=== PATIENT | female | born 1995 | race Caucasian/White ===

== ENCOUNTER 2024-01-10 08:15 | Outpatient (CLI) | payer OTHER, SELFPAY ==
[2024-01-10 10:39] LABS: Chlamydia DNA Amplified* NOT DETECTED (No Detected); GC DNA Amplified* NOT DETECTED (No Detected)
== END 2024-01-10 08:16 | disposition home or self-care (01) ==
LOC: NFLDREF 08:15
PROVIDERS: PCP Family Medicine; Visit Provider Registered Nurse
DX: Z11.3 Encounter for screening for infections with a predominantly sexual mode of transmission (principal)
CPT/HCPCS: 87491; 87591

== ENCOUNTER 2024-02-22 14:31 | Outpatient (CLI) | payer OTHER, SELFPAY | END 2024-02-22 14:32 | disposition home or self-care (01) | PROVIDERS: PCP Family Medicine; Visit Provider Registered Nurse | DX: L68.0 Hirsutism (principal); Z13.228 Encounter for screening for other metabolic disorders; Z13.220 Encounter for screening for lipoid disorders | CPT/HCPCS: 80053; 80061; 83498; 84270; 84402; 84403; 84443 ==

== ENCOUNTER 2024-03-07 11:18 | Outpatient (CLI) | payer OTHER, SELFPAY ==
--- NOTE | 2024-03-07 11:30 | CRLHL7_ITS ---
For Patients: As a result of the Century Cures Act, medical imaging exams and procedure reports are released immediately into your electronic medical record. You may view this report before your referring provider. If you have questions, please contact your health care provider. INDICATION: Hirsutism. Rule out polycystic ovary syndrome. TECHNIQUE: Transabdominal and transvaginal scanning was performed. Transvaginal scanning was performed to optimally evaluate the endometrium and adnexa. Ovarian blood flow was evaluated with color-flow and pulsed Doppler. COMPARISON: None. FINDINGS: The uterus is normal in size and shape. The uterus measures 6.4 x 2.8 x 4.5 cm. No uterine mass is evident. The endometrial stripe is normal in thickness at 1 mm. Numerous small ovarian follicles, many of which are peripherally located, a are demonstrated both ovaries. The right ovary measures 4.6 x 2.3 x 2.0 cm and left 4.0 x 2.7 x 2.0 cm. Ovarian blood flow is demonstrated with color-flow and pulsed Doppler. No adnexal mass is evident. No free fluid is demonstrated. IMPRESSION: Numerous small follicles in both ovaries, many of which are peripherally located. Possible PCOS. Dictated by Jian Roa MD @ 03/08/2024 11:48:39 AM (Electronically Signed)
== END 2024-03-07 11:19 | disposition home or self-care (01) ==
LOC: US 11:19
PROVIDERS: PCP Family Medicine; Visit Provider Registered Nurse
DX: L68.0 Hirsutism (principal); N83.01 Follicular cyst of right ovary; N83.02 Follicular cyst of left ovary
CPT/HCPCS: 76830; 76856

== ENCOUNTER 2024-07-01 11:20 | Outpatient (CLI) | payer OTHER, SELFPAY | END 2024-07-01 11:21 | disposition home or self-care (01) | LOC: NFLDREF 07-03 05:40 | PROVIDERS: PCP Family Medicine; Referring Provider Family Medicine; Visit Provider Registered Nurse | DX: Z79.899 Other long term (current) drug therapy (principal) | CPT/HCPCS: 84132 ==